=== PATIENT | female | born 1955 | race Caucasian/White ===

== ENCOUNTER → 2017-10-07 | Outpatient (CLI) | payer OTHER ==
[2017-10-07 15:00] LABS: BASO ABS # 0.07 K/uL (0-0.2); EOS % 5.6 %; EOS ABS # 0.39 K/uL (0-0.5); HEMATOCRIT 41.9 % (37-47); HEMOGLOBIN 14.5 g/dL (12.0-16.0); IG# 0.01 K/uL (0.00-0.02); LYMPH % 27.9 %; LYMPH ABS # 1.93 K/uL (1.2-3.4); MEAN CELL VOLUME 91.7 fL (80-100); MEAN CORPUSCULAR HEMOGLOBIN 31.7 pg (25-34); MEAN CORPUSCULAR HGB CONC 34.6 g/dl (32-36); MEAN PLATELET VOLUME 9.8 fL (7.4-10.4); MONO % 9.1 %; MONO ABS # 0.63 K/uL (0.11-0.59); NEUT % 56.3 %; NEUT ABS # 3.89 K/uL (1.4-6.5); PLATELET COUNT 239 K/uL (130-400); RED CELL DISTRIBUTION WIDTH CV 13.7 % (11.5-14.5); RED CELL DISTRIBUTION WIDTH SD 46.3 fL (36.4-46.3); WHITE BLOOD COUNT 6.92 K/uL (4.8-10.8)
[2017-10-07 15:20] LABS: ALBUMIN 3.5 gm/dl (3.4-5.0); ALT/SGPT 36 U/L (12-78); AST/SGOT 15 U/L (15-37); BLOOD UREA NITROGEN 13 mg/dl (7-18); CALCIUM 8.3 mg/dl (8.5-10.1); CARBON DIOXIDE 26 mmol/L (21-32); CREATININE 0.75 mg/dl (0.60-1.20); GLUCOSE 74 mg/dl (70-99); POTASSIUM 3.8 mmol/L (3.5-5.1); SODIUM 140 mmol/L (136-145)
[2017-10-07 15:25] LABS: ALKALINE PHOSPHATASE 95 U/L (45-117)
[2017-10-07 15:29] LABS: T3 FREE 2.7 pg/ml (2.30-4.20)
[2017-10-12 12:35] LABS: MICROSOMAL AB <1 IU/ML (<9)
== END | disposition home or self-care (01) ==
LOC: C.LAB 14:33
PROVIDERS: ATTEND Chiropractor
DX: M79.1 Myalgia (principal)

== ENCOUNTER 2020-03-02 05:21 | Observation (INO) ==
--- NOTE | 2020-02-27 08:52 | Anesthesiology Consultation ---
Date of Service February 27, 2020 Assessment & Plan (1) Encounter for pre-operative examination: Per nursing phone assessment on 02/25: Travel screen- Travel to [facility] (shopping, wears mask). No known COVID-19 positive contacts. __ current COVID-19 related symptoms. Patient had preop protocol COVID-19 testing 02/25 ([place]). Results pending. Chart Review Chart Review: Acceptable Risk for Surgery and Patient NOT seen in Pre Admission Testing History Surgery Operation Date: 03/02/20 10:50 Proposed Procedures p Bilateral Breast Reduction - Ladonna Byrne MD Height/Weight Height: 5 ft 2 in Weight: 76.657 kg Allergies Allergy/AdvReac Type Severity Reaction Status Date / Time No Known Allergies Allergy Verified 02/26/20 14:47 Medications Home Medications Medication Instructions Recorded Confirmed Last Taken ascorbate calcium (vitamin C) 500 500 mg PO QAM 09/18/19 02/26/20 Unknown mg tablet cholecalciferol (vitamin D3) 100 4,000 units PO QAM 09/18/19 02/26/20 Unknown mcg (4,000 unit) capsule multivitamin 1 cap PO QAM 09/18/19 02/26/20 Unknown oxycodone-acetaminophen 5 mg-325 1 tab PO Q4H PRN 3 Days #18 tab 02/25/20 02/26/20 Unknown mg tablet acetaminophen [Tylenol] 650 mg PO QID PRN 02/26/20 02/26/20 Unknown ibuprofen 400 mg PO Q6H PRN 02/26/20 02/26/20 Unknown Past Medical History Medical History Anxiety Cardiac murmur per patient, heard "years ago"/no murmur noted per recent office visit with plastic surgery 02/25/20, no recent echo GERD (gastroesophageal reflux disease) Migraine Osteoarthritis Sleep apnea no cpap White coat syndrome with hypertension Past Family History Family History Mother Cancer Sister Diabetes Sister Diabetes Brother Diabetes Past Surgical History Surgical History History of appendectomy History of section History of colonoscopy History of dilatation and curettage x4 History of esophagogastroduodenoscopy (EGD) History of tooth extraction Hx of LASIK Social History Smoking Status: Never smoker Do You Dip or Chew Tobacco: No Hx Alcohol Use: No Hx Substance Use: No substance use type: does not use Testing Laboratory Results 02/26/20 WBC 4.75 H/H 15.0/43.9 PLATELETS 220 SODIUM 142 POTASSIUM 3.9 CHLORIDE 110 CO2 31 BUN 11 CREATININE 0.76 GLUCOSE 91 PT 10.5 PTT 29.1 INR 1.0 Electrocardiogram Date: 02/26/20 SB at 57bpm. unconfirmed report.
[2020-03-02] MEDS ORDERED: LACTATED RINGER'S 1,000 ML IV SCH (06:00)
[2020-03-02] MEDS ORDERED: CEFAZOLIN 2000MG 2,000 MG/15 ML SYR IV SCH (06:00)
[2020-03-02] MEDS ORDERED: ONDANSETRON INJ 2 MG/ML 2 ML VIAL ONE (06:39)
[2020-03-02] MEDS ORDERED: ePHEDrine sulfate 50 MG/ML AMP ONE (06:39)
[2020-03-02] MEDS ORDERED: SUCCINYLCHOLINE CHLORIDE 20 MG/ML 10 ML VIAL IV ONE (06:39)
[2020-03-02] MEDS ORDERED: DEXAMETHASONE SOD INJ 4 MG/ML VIAL ONE ×2 (06:39→08:04)
[2020-03-02] MEDS ORDERED: MIDAZOLAM HCL 1 MG/ML 2ML VIAL ONE (06:39)
[2020-03-02] MEDS ORDERED: PHENYLEPHRINE HCL 10 MG/ML VIAL ONE (06:39)
[2020-03-02] MEDS ORDERED: PROPOFOL IV EMULSION 10 MG/ML 20 ML VIAL IV ONE (06:39)
[2020-03-02] MEDS ORDERED: GLYCOPYRROLATE 0.2 MG/ML VIAL ONE (06:39)
[2020-03-02] MEDS ORDERED: LIDOCAINE HCL 2% 2 ML VIAL/AMP(20MG/ML) INFIL ONE (06:39)
[2020-03-02] MEDS ORDERED: NEOSTIGMINE METHYLSULFATE 5 MG/5 ML SYR ONE (06:39)
[2020-03-02] MEDS ORDERED: fentaNYL citrate 100 MCG/2 ML VIAL ONE (06:39)
[2020-03-02] MEDS ORDERED: ROCURONIUM BROMIDE 10 MG/ML 5 ML VIAL IV ONE ×2 (06:49→08:55)
--- NOTE | 2020-03-02 06:56 | History & Physical Bridge Note ---
Date of Service March 02, 2020 History & Physical Bridge Note I have examined the patient, reviewed the History & Physical and in the interval since the performance of the History & Physical I have noted the following changes of clinical significance: no changes noted
[2020-03-02] MEDS ORDERED: HYDROmorphone INJ 2 MG/ML SYR/VIAL IV PRN (07:09)
[2020-03-02] MEDS ORDERED: ONDANSETRON INJ 2 MG/ML 2 ML VIAL IV PRN ×2 (07:09→12:26)
[2020-03-02] MEDS ORDERED: ePHEDrine sulfate 50 MG/ML AMP IV PRN (07:09)
[2020-03-02] MEDS ORDERED: ATROPINE SULFATE 0.1 MG/ML 10ML SYR IV PRN (07:09)
[2020-03-02] MEDS ORDERED: fentaNYL citrate 100 MCG/2 ML VIAL IV PRN (07:09)
[2020-03-02] MEDS ORDERED: LIDOCAINE/EPINEPHRINE 1% 20 ML VIAL ONE (07:17)
[2020-03-02] MEDS ORDERED: BUPIVACAINE 0.25% 30 ML VIAL ONE (07:17)
[2020-03-02] MEDS ORDERED: BUPIVACAINE 0.5 % 5 MG/1 ML PF 10ML VIAL ONE (07:28)
[2020-03-02] MEDS ORDERED: HYDROmorphone INJ 2 MG/ML SYR/VIAL ONE (08:51)
[2020-03-02] MEDS ORDERED: SODIUM CHLORIDE 0.9% INJ 10 ML VIAL ONE (08:52)
--- NOTE | 2020-03-02 12:13 | Post Operative Brief Note ---
PG Immediate Post Op with CF Date of Surgery March 02, 2020 Pre & Post Diagnosis Operation Date: 03/02/20 07:30 Pre-Op Diagnosis: Bilateral Breast Hypertrophy Post-Op Diagnosis: Bilateral Breast Hypertrophy I identified the patient and participated in the time-out.: Yes Procedure Operation Date: 03/02/20 07:30 Actual Procedures p Bilateral Breast Reduction(Bilateral) - Ladonna Byrne MD Surgeon Ladonna Byrne MD Rotary Drum Tanner Ela Lunsford PA-C Estimated Blood Loss 50 Findings Consistent with Post-Op Diagnosis Specimens Specimen Description: Fresh Specimen : A.) Left Breast Tissue - out of body at 0907. weight = 632 grams Fresh Specimen: B.) Right Breast Tissue - out of body at 1045. weight = 602 grams Drains Woodrow-Owens Drain (x2)
[2020-03-02] MEDS ORDERED: MoRPHine SULFATE 4 MG/ML 1 ML CARP\\VIAL IV PRN (12:26)
[2020-03-02] MEDS ORDERED: LORazepam 0.5 MG TAB PO PRN (12:26)
[2020-03-02] MEDS ORDERED: MoRPHine SULFATE 10 MG/ML CARP/VIAL IV PRN (12:26)
[2020-03-02] MEDS ORDERED: MoRPHine SULFATE 2 MG/ML CARP IV PRN (12:26)
[2020-03-02] MEDS ORDERED: OXYCODONE/ACETAMINOPHEN 5mg/325mg TAB PO PRN ×2 (12:26)
[2020-03-02] MEDS ORDERED: DiphenhydrAMINE HCL 50 MG/ML VIAL IV PRN (12:26)
--- NOTE | 2020-03-02 13:19 | Operative Report ---
PG Post Operative Report Pre & Post Diagnosis Operation Date: 03/02/20 07:30 Pre-Op Diagnosis: Bilateral Breast Hypertrophy Post-Op Diagnosis: Bilateral Breast Hypertrophy I identified the patient and participated in the time-out.: Yes Procedure Operation Date: 03/02/20 07:30 Actual Procedures p Bilateral Breast Reduction(Bilateral) - Ladonna Byrne MD Surgeon Ladonna Byrne MD Commanding Officer [employer] Ela Lunsford PA-C Estimated Blood Loss 50 Findings Consistent with Post-Op Diagnosis Specimens left breast 632 g, right breast 602 g Drains JPx2 Anesthesia Type General Complications none Disposition Disposition: Recovery Room Indications back, neck and shoulder pain, intertrigo due to macromastia Description of Procedure The risks, benefits, and alternatives of the procedure were explained to the patient who agreed and signed consent. She was identified and marked in the preoperative holding area. She was brought to the operating room where she was positioned supine and placed under general anesthesia without incident. Surgical site was prepped and draped sterilely. A time-out procedure was performed. I began with the left side. Markings were reassessed and a 7 cm pedicle was marked. 1% lidocaine with epinephrine was used to anesthetize the planned incisions. A 38 mm cookie cutter was used to circumscribe the nipple-areolar complex. The previously marked 7 cm pedicle was incised using a 15 blade scalpel and deepithelialized. I began with the medial dissection of the pedicle using electrocautery. Cautery was used to incise through dermis and breast parenchyma down to the chest wall, taking care not to undermine the pedicle during dissection. A similar procedure was undertaken on the lateral aspect of the pedicle again taking care not to undermine. Lastly, the pedicle was dissected out superiorly using electrocautery and this was carried down to the chest wall as well. I then began with excision of the medial breast tissue followed by lateral aspect of the breast tissue and surrounding keyhole incision. A 15 blade scalpel was used to make the inframammary fold incision and electrocautery was used to deepen the incision through dermis and breast parenchyma. Dissection was then carried superiorly to the level of the superior incision. Superior incision was then incised using a 15 blade scalpel and again dissected using electrocautery. This was undertaken laterally and then around the keyhole portion of the incision. Care was taken to leave some fat on the lateral pectoralis fascia in order to protect the T4 intercostal nerve. Hemostasis was achieved with electrocautery. The specimen was passed off in its entirety for weighing. Additional resection was undertaken from the superior flap in order to facilitate closure of the breast and to provide the best shape. The total resection weight of the left breast was 632 grams. The wound was irrigated with saline and hemostasis was achieved with electrocautery. A 15 [place] Tesfaye drain was brought out through a separate stab incision. The nipple-areolar complex was brought into the keyhole using 2-0 Vicryl deep dermal suture. The wound was closed first in a lateral to mid breast direction and then medial to mid breast direction using 2-0 Vicryl deep dermal sutures. Vertical limb was also approximated using 2-0 Vicryl deep dermals and the nipple-areolar complex was inset using 2-0 Vicryl deep dermal sutures. Next, the superficial dermal layer was closed using 2-0 PDO running Quill suture along the inframammary fold and 3-0 PDS interrupted dermal sutures along the vertical limb and nipple- areolar complex. Lastly 3-0 Monocryl running subcuticular suture was placed. A similar procedure was undertaken on the right side with maximal excision weight of 602 grams. Left NAC appeared mildly venous congested, which improved following release of PDS sutures. Monocryl was loosely run around the NAC. Breasts were symmetric and nipple-areolar complexes were viable bilaterally following wound closure, with bright red bleeding at the NAC. Dermabond Prineo was applied along the inframammary fold and vertical limb and xeroform was placed around the nipple-areolar complex. Dry dressings and a surgical bra were placed. The patient was awakened and transferred to recovery room in satisfactory condition. Ela Lunsford PA-C was present and scrubbed throughout the procedure and was instrumental in providing retraction during dissection of the pedicle and assisting in wound closure. I attest to the content of the Intraoperative Record and any orders documented therein. Any exceptions are noted below.
--- NOTE | 2020-03-02 15:32 | Anesthesiology Progress Note ---
Date of Service March 02, 2020 Anesthesia Post Procedure Vital Signs Vital Signs: Temp Pulse Pulse Pulse Resp BP Pulse Ox 03/02/20 14:40 36.3 C L 69 20 107/71 96 03/02/20 14:10 36.4 C L 68 18 102/70 94 03/02/20 13:40 36.6 C 74 16 114/75 97 03/02/20 13:30 36.3 C L 70 16 127/67 95 03/02/20 13:20 36.3 C L 66 16 108/75 94 03/02/20 13:10 74 19 115/70 95 03/02/20 13:00 36.3 C L 65 15 125/75 96 03/02/20 12:50 74 18 124/71 97 03/02/20 12:40 74 18 127/75 96 03/02/20 12:33 36 C L 76 16 130/82 100 03/02/20 05:51 37.1 C 62 16 136/83 98 Pain Intensity Bilateral Breast: Pain Intensity: 8 Transfer of Care Handoff Completed per policy Notes Mental Status: alert / awake / arousable and participated in evaluation Patient Amnestic to Procedure: Yes Nausea / Vomiting: adequately controlled Pain: adequately controlled Airway Patency, RR, SpO2: stable & adequate BP & HR: stable & adequate Hydration State: stable & adequate Anesthetic Complications: no major complications apparent and Pt Satisfied with anesthetic care
[2020-03-02] MEDS ORDERED: PROMETHAZINE HCL 12.5 MG in SODIUM CHLORIDE 0.9% 50 ML IV PRN (16:50)
--- NOTE | 2020-03-02 16:56 | Surgery Progress Note ---
Date of Service March 02, 2020 Assessment & Plan (1) S/P bilateral breast reduction: Pt seen and examined with dr. dodson. Nipples are pink, viable. Surgical bra and surgical dressings in place. Pain is well-controlled. Plan is for discharge tomorrow AM. Subjective Denisse is resting in bed, at bedside. She reports some mild nausea since surgery. She denies pain. Physical Exam Physical Exam: Surgical bra in place- surgical dressings in place- clean, dry. Nipples checked- they are both pink, viable. RAH drains x [address] Results & Data Vital Signs (Past 12 Hours) Vital Signs Temp Pulse Pulse Pulse Resp BP Pulse Ox 03/02/20 15:40 36.2 C L 66 18 117/82 94 03/02/20 14:40 36.3 C L 69 20 107/71 96 03/02/20 14:10 36.4 C L 68 18 102/70 94 03/02/20 13:40 36.6 C 74 16 114/75 97 03/02/20 13:30 36.3 C L 70 16 127/67 95 03/02/20 13:20 36.3 C L 66 16 108/75 94 03/02/20 13:10 74 19 115/70 95 03/02/20 13:00 36.3 C L 65 15 125/75 96 03/02/20 12:50 74 18 124/71 97 03/02/20 12:40 74 18 127/75 96 03/02/20 12:33 36 C L 76 16 130/82 100 03/02/20 05:51 37.1 C 62 16 136/83 98 PG Care Time/CCT Total # of Minutes Spent Total Time Spent with Patient: Total time spent is greater than 50% in coordination of care (as documented) at patient's floor/unit and/or counseling patient: Coding Level of Care Code None Diagnoses S/P bilateral breast reduction Z98.890
[2020-03-02] MEDS: D5W AND 1/2NSS + 20MEQ KCL 20 MEQ/1,000 ML BAG IV SCH (16:57)
[2020-03-02] MEDS: CEFAZOLIN 2000MG 2,000 MG/15 ML SYR IV SCH ×2 (16:57→23:55)
[2020-03-03] MEDS: D5W AND 1/2NSS + 20MEQ KCL 20 MEQ/1,000 ML BAG IV SCH (01:42)
--- NOTE | 2020-03-03 08:25 | Surgery Progress Note ---
Date of Service March 03, 2020 Assessment & Plan (1) S/P bilateral breast reduction: Denisse is doing very well POD #1. Her pain is well-controlled. She has not needed any pain medication. Nipples are pink, viable on examination. RAH drains x 2 removed today at bedside. She is ok for discharge to home. Discharge instructions reviewed with patient. She has a follow-up Telehealth visit tomorrow. Subjective Resting comfortably in bed. She denies pain. Is tolerating a regular diet without issue. Post-op nausea has resolved. She is very happy with the results of her reduction. Physical Exam Physical Exam: On physical exam- RAH drains x [address] with serosang drainage. RAH drains removed today at bedside without issue. Nipples are pink, viable with some sensation. Xeroform dressing overtop each nipple. Incisions are clean, dry, intact, and well-approximated. Surgical bra reattached. Results & Data Vital Signs (Past 12 Hours) Vital Signs Temp Pulse Resp BP Pulse Ox 03/03/20 07:28 36.8 C 66 16 123/81 96 03/03/20 03:03 36.6 C 68 16 105/69 97 03/02/20 23:24 36.6 C 63 14 99/64 L 92 PG Care Time/CCT Total # of Minutes Spent Total Time Spent with Patient: Total time spent is greater than 50% in coordination of care (as documented) at patient's floor/unit and/or counseling patient: Coding Level of Care Code None Diagnoses S/P bilateral breast reduction Z98.890
[2020-03-03] MEDS ORDERED: MULTIVITAMIN TAB PO SCH (09:00)
--- NOTE | 2020-03-03 13:46 | Discharge Summary ---
Date of Service March 03, 2020 Admission HPI Per Admitting Provider Admission H & P. Admission Exam Per Admitting Provider Admission H & P. Principal Diagnosis Bilateral Symptomatic Macromastia Discharge Data Allergies Allergy/AdvReac Type Severity Reaction Status Date / Time No Known Allergies Allergy Verified 03/02/20 05:58 Procedures Performed Operation Date: 03/02/20 07:30 Actual Procedures p Bilateral Breast Reduction(Bilateral) - Ladonna Byrne MD Ordered Studies 03/02/20 07:16 US - OR guided needle placemen Routine Hospital Course (1) S/P bilateral breast reduction: Denisse is a 64-year-old female with Bilateral Symptomatic Macromastia. She was taken to the OR and underwent bilateral breast reduction. There were no intraoperative complications. She was taken to recovery and transferred to med/surg for observation. On POD #1, she was feeling a bit sore, but overall doing well. She did experience some post-op nausea, but that had resolved by the following morning. She was tolerating a regular diet, voiding on her own, and ambulating without issue. On exam, her vitals were stable. Her incisions were clean, dry, and intact. Nipples were pink bilaterally and viable. Her drains were removed without issue at bedside. She was discharged home with instructions to follow-up with our office, via Telehealth, in 1 day. All questions were answered. Total Time Total Time Spent Total Time Spent (In Minutes): 5 Discharge Plan Discharge Items Patient Disposition: Home - Self-Care Reason For Visit: Hypertrophy of Breast Discharge Diagnosis: Hypertrophy of Breast Activity: As commented below Non-emergency contact: Surgeon Call non-emergency contact if: you have any medication questions, your pain is not controlled, your temperature is above 101.5, your wound has increased redness and your wound has increased drainage Follow-up/Referrals: Addy Simmons, [Primary Care Provider] - Diet: Regular Addtl Attending Provider Instructions: ACTIVITY RECOMMENDATIONS: __Normal activities _X_No bending, lifting or straining __No driving _X_Driving allowed when you are off pain medications _X_Walking permitted __You should have help at home for ___ days DRESSINGS: __No dressings required _X_Keep surgical bra and dressings dry/in place until first office visit __Remove dressings ___ and leave dressings off __Apply ice ___ days __Remove dressings and reapply garment __Apply antibiotic ointment (Bacitracin, Neosporin, etc) to wounds 3-4 times/day for 10 days BATHING: _X_Keep dressings dry _X_Sponge bathing permitted, but keep surgical bra and surgical dressings dry. __Showering permitted _X_No swimming, hot tubs or soaking in a tub MEDICATIONS: Resume previous medications unless instructed otherwise by your surgeon. _X_Do not use aspirin, Motrin, Advil or Ibuprofen as these may promote bleeding. Please use Tylenol. _X_Prescription(s) provided: Prescription for post-op pain medication provided at last office visit. Please use as prescribed. SPECIAL CARE INSTRUCTIONS: * It is normal to have a mild fever after surgery. If your temperature is higher than 101.5 degrees F, please call the office at [phone]. * Constipation is a typical side effect of pain medication. An [id number] stool softener will help relieve this. * Leaking around surgical drains may occur and should not cause concern. Sometimes these drains become clogged. If this happens, remove the bulb and milk the clot out of the tube, then replace the bulb. * Drainage from wounds after liposuction is normal and should be expected. Garments will become soiled. You should protect furniture and bedding. This drainage should mostly subside within 2-3 days. Leave garments in place unless instructed to remove them. * If you have unusual drainage from a wound or are concerned you have an infection or have any questions or concerns, please call the office at [phone]. FOLLOW UP VISIT: If not already scheduled, please call the office, , when you return home after surgery to schedule an appointment to be seen in _1__ days. Pending Studies at Discharge: Yes Studies:: Pathology report. Stand-Alone Forms: My [facility] Medications and DC Order Prescriptions: Continued multivitamin Capsule 1 cap PO QAM RF: 0 ascorbate calcium (vitamin C) 500 mg tablet 500 mg PO QAM RF: 0 cholecalciferol (vitamin D3) 4,000 unit capsule 4,000 units PO QAM RF: 0 oxycodone-acetaminophen [Percocet] 5-325 mg tablet 1 tab PO Q4H PRN (Reason: pain) 3 Days Qty: 18 RF: 0 acetaminophen [Tylenol] 325 mg Capsule 650 mg PO QID PRN (Reason: Pain) RF: 0 Discontinued ibuprofen 400 mg Tablet 400 mg PO Q6H PRN (Reason: Pain) RF: 0 Discharge Orders: Discharge Order (Routine); Ordered 03/03/20 Ordered By: Ela Lunsford Admission Data Admit Date/Time: 03/02/20 12:26 Attending Provider: Ladonna Byrne Admit Provider: Ladonna Byrne Primary Care Provider: dAdy Simmons Other Interventions: Discharge Summary Assessment (RN) Last Done: 03/03/20 09:15 DC Date/Time DO NOT enter until pt leaves facility: 03/03/20 10:07 Coding Level of Care Code 22541 OBS Care - Discharge Diagnoses S/P bilateral breast reduction Z98.890
== END 2020-03-03 10:07 | disposition home or self-care (01) ==
LOC: 3N 05:21 → ASU 05:21